=== PATIENT | male | born 1995 | race African-American/Black ===

== ENCOUNTER 2024-09-19 21:00 | Emergency (ER) | payer OTHER, MEDICAID ==
[~2024-09-19] VITALS: Ht 180.3 cm; Wt 93.0 kg
[2024-09-19 23:06] VITALS: TEMP 98.2; O2SAT 100
[2024-09-20] MEDS ORDERED: IBUP-2029 MT (04:51)
[2024-09-20 05:10] VITALS: BP 129/79; PULSE 78; RESP 15; O2SAT 100
== END 2024-09-20 05:25 | disposition home or self-care (01) ==
LOC: ER 21:00
DX: S90.32XA Contusion of left foot, initial encounter (principal); M79.642 Pain in left hand; X58.XXXA Exposure to other specified factors, initial encounter; Y93.89 Activity, other specified; Y92.89 Other specified places as the place of occurrence of the external cause; Y99.8 Other external cause status
CPT/HCPCS: 73630; 99283